=== PATIENT | male | born 1990 | race African-American/Black ===

== ENCOUNTER 2022-02-06 13:19 | Emergency (ER) | payer SELFPAY ==
[~2022-02-06] VITALS: Ht 180.3 cm; Wt 68.2 kg
[2022-02-06] MEDS ORDERED: KETOROLAC TROMETHAMINE 10 MG TABLET PO ONE (15:00)
[2022-02-06 16:06] VITALS: BP 141/85
== END 2022-02-06 17:10 | disposition home or self-care (01) ==
LOC: EMS 13:23
DX: S92.001A Unspecified fracture of right calcaneus, initial encounter for closed fracture (principal); S92.101A Unspecified fracture of right talus, initial encounter for closed fracture; F12.90 Cannabis use, unspecified, uncomplicated; F17.210 Nicotine dependence, cigarettes, uncomplicated; X50.1XXA Overexertion from prolonged static or awkward postures, initial encounter; Y93.89 Activity, other specified; Y92.89 Other specified places as the place of occurrence of the external cause; Y99.8 Other external cause status
CPT/HCPCS: 29515; 99284